=== PATIENT | male | born 1985 | race Caucasian/White ===

== ENCOUNTER 2019-05-09 17:55 | Emergency (ER) | payer BC ==
[2019-05-09] MEDS ORDERED: BISACODYL E.C. 5 MG TAB PO ONE (19:58)
[2019-05-09] MEDS ORDERED: POLYETHYL GLY 3350 17 GM/DOSE ONE (19:59)
[2019-05-09] MEDS ORDERED: MAGNESIUM CITRATE 300 ML BOT ONE (19:59)
[2019-05-09 20:04] LABS: Absolute Lymphocytes (CBC) 1.8 K/uL (0.7-4.9); Basophils % 0.6 % (0-1.3); Hematocrit 44.6 % (39.6-49.0); Lymphocytes % 34.4 % (15.3-44.8); MPV 8.7 fL (7.6-11.3); RBC Red Blood Cell Count 4.87 M/uL (4.33-5.43)
[2019-05-09 20:22] LABS: Bilirubin Direct 0.1 mg/dL (0-0.2); Bilirubin Total 0.2 mg/dL (0.2-1.0); Potassium 3.8 mmol/L (3.5-5.1); Protein, Total 8.1 g/dL (6.4-8.2)
--- NOTE | 2019-05-09 20:39 | RAD REPORT ---
EXAM DESCRIPTION: CTAbdomen Pelvis W Contrast - 05/09/2019 8:33 pm CLINICAL HISTORY: Abdominal pain. constipated;Abd pain COMPARISON: No comparisons TECHNIQUE: Biphasic CT imaging of the abdomen and pelvis was performed with 100 ml non-ionic IV cont rast. All CT scans are performed using dose optimization technique as appropriate and may include automated exposure control or mA/KV adjustment according to patient size. FINDINGS: The lung bases are clear. The liver, spleen, pancreas, adrenal glands and kidneys are within normal limits. No bowel obstruction, free air, free fluid or abscess. Moderate fecal retention in the colon. The britney endix is normal. No evidence of significant lymphadenopathy. No suspicious bony findings. IMPRESSION: Moderate fecal retention in the colon.
--- NOTE | 2019-05-09 20:55 | EDPHYS ---
Physician Documentation [facility] Name: Lux Reese III Age: 34 yrs Sex: Male : 1985 Arrival Date: 05/09/2019 Time: 17:57 Bed 27 Private MD: ED Physician Gordo Peterson HPI: 05/09 20:01 This 34 yrs old Male presents to ER via Ambulatory with complaints of kdr Constipation, Abdominal Pain. 20:01 The patient presents with abdominal pain that is diffuse. Onset: The symptoms/episode kdr began/occurred gradually, 4 day(s) ago. The symptoms do not radiate. Associated signs and symptoms: Pertinent positives: nausea, Pertinent negatives: blood in stools, chest pain, dysuria, fever, hematuria, palpitations, shortness of breath, testicular pain, vomiting, vomiting blood, The patient had diarrhea for a few days and then he changed his diet after being evaluated at [place]. For the last 4-5 days, he has not had any BM. He has occasional sharp pain as he has to go but then nothing comes out aside from gas. The symptoms are described as achy, crampy, intermittent, sharp, vague, waxing/waning. Modifying factors: The symptoms are alleviated by nothing, the symptoms are aggravated by breathing deeply, movement, touching the area. Severity of pain: At its worst the pain was moderate severe in the emergency department the pain has improved moderately. The patient has not experienced similar symptoms in the past. Historical: - Allergies: 18:41 No Known Allergies; aa5 - Home Meds: 18:41 None [Active]; aa5 - PMHx: 18:41 None; aa5 - PSHx: 18:41 Tonsillectomy; Hernia repair; aa5 - Immunization history:: Flu vaccine is not up to date. - Social history:: Smoking status: Patient uses tobacco products, smokes one-half pack cigarettes per day. - Ebola Screening: : No symptoms or risks identified at this time. ROS: 20:01 Constitutional: Negative for fever, chills, and weight loss, Eyes: Negative for injury, kdr pain, redness, and discharge, ENT: Negative for injury, pain, and discharge, Neck: Negative for injury, pain, and swelling, Cardiovascular: Negative for chest pain, palpitations, and edema, Respiratory: Negative for shortness of breath, cough, wheezing, and pleuritic chest pain, Back: Negative for injury and pain, : Negative for injury, bleeding, discharge, and swelling, MS/Extremity: Negative for injury and deformity, Skin: Negative for injury, rash, and discoloration, Neuro: Negative for headache, weakness, numbness, tingling, and seizure activity. Psych: Negative for depression, anxiety, suicide ideation, homicidal ideation, and hallucinations, Allergy/Immunology: Negative for hives, rash, and allergies, Endocrine: Negative for neck swelling, polydipsia, polyuria, polyphagia, and marked weight changes, Hematologic/Lymphatic: Negative for swollen nodes, abnormal bleeding, and unusual bruising. 20:01 Abdomen/GI: Positive for abdominal pain, nausea, constipation, abdominal cramps, flatulence, Negative for abdominal distension, anorexia, dysphagia, hematemesis, black/tarry stool, rectal pain, rectal bleeding, bowel incontinence. Exam: 20:01 Constitutional: This is a well developed, well nourished patient who is awake, alert, kdr and in no acute distress. Head/Face: Normocephalic, atraumatic. Eyes: Pupils equal round and reactive to light, extra-ocular motions intact. Lids and lashes normal. Conjunctiva and sclera are non-icteric and not injected. Cornea within normal limits. Periorbital areas with no swelling, redness, or edema. Neck: Trachea midline, no thyromegaly or masses palpated, and no cervical lymphadenopathy. Supple, full range of motion without nuchal rigidity, or vertebral point tenderness. No Meningismus. Chest/axilla: Normal chest wall appearance and motion. Nontender with no deformity. No lesions are appreciated. Cardiovascular: Regular rate and rhythm with a normal S1 and S2. No gallops, murmurs, or rubs. Normal PMI, no JVD. No pulse deficits. Respiratory: Lungs have equal breath sounds bilaterally, clear to auscultation and percussion. No rales, rhonchi or wheezes noted. No increased work of breathing, no retractions or nasal flaring. Back: No spinal tenderness. No costovertebral tenderness. Full range of motion. Skin: Warm, dry with normal turgor. Normal color with no rashes, no lesions, and no evidence of cellulitis. MS/ Extremity: Pulses equal, no cyanosis. Neurovascular intact. Full, normal range of motion. Neuro: Awake and alert, GCS 15, oriented to person, place, time, and situation. Cranial nerves II-XII grossly intact. Motor strength 5/5 in all extremities. Sensory grossly intact. Cerebellar exam normal. Normal gait. Psych: Awake, alert, with orientation to person, place and time. Behavior, mood, and affect are within normal limits. Vital Signs: 18:41 BP 120 / 81; Pulse 97; Resp 16 S; Temp 97.2(TE); Pulse Ox 99% on R/A; Weight 72.57 kg aa5 (R); Height 6 ft. 0 in. (182.88 cm) (R); Pain 3/10; 19:24 BP 120 / 87; Pulse 67; Resp 16; Pulse Ox 99% on R/A; Pain 4/10; jp3 20:16 BP 113 / 85; Pulse 85; Resp 17; Pulse Ox 99% on R/A; tr5 18:41 Body Mass Index 21.70 (72.57 kg, 182.88 cm) aa5 MDM: 20:54 Patient medically screened. kdr 21:22 Data reviewed: vital signs, nurses notes, lab test result(s), radiologic studies. kdr Counseling: I had a detailed discussion with the patient and/or guardian regarding: the historical points, exam findings, and any diagnostic results supporting the discharge/admit diagnosis, lab results, radiology results, the need for outpatient follow up. 05/09 19:31 Order name: Basic Metabolic Panel; Complete Time: 20:51 kdr 05/09 19:31 Order name: CBC with Diff; Complete Time: 20:51 kdr 05/09 19:31 Order name: Creatinine for Radiology; Complete Time: 20:51 kdr 05/09 19:31 Order name: Hepatic Function; Complete Time: 20:51 kdr 05/09 19:31 Order name: Lipase; Complete Time: 20:51 kdr 05/09 19:31 Order name: CT Abd/Pelvis - IV Contrast Only; Complete Time: 20:51 kdr 05/09 19:31 Order name: IV Saline Lock; Complete Time: 19:59 kdr 05/09 19:31 Order name: Labs collected and sent; Complete Time: 19:59 kdr Administered Medications: 20:04 Drug: Miralax 17 grams Route: PO; tr5 20:04 Drug: Magnesium Citrate Liquid 300 ml Route: PO; tr5 20:04 Drug: Dulcolax Delayed Release Tablet 5 mg Route: PO; tr5 Disposition: 05/09/19 20:54 Discharged to Home. Impression: Constipation, Abdominal and pelvic pain. - Condition is Stable. - Discharge Instructions: Constipation, Adult, [id number], Abdominal Pain, Adult, [id number]. - Prescriptions for Dulcolax (bisacodyl) 5 mg Oral tablet,delayed release (DR/EC) - take 1 tablet by ORAL route once daily As needed; 10 tablet. magnesium citrate - take 1 bottle by ORAL route 2-3 times daily As needed; 3 bottle. Miralax 17 gram/dose Oral - take 1 packet by ORAL route once daily dilute powder in 8 ounces of water or juice; 1 box. - Medication Reconciliation Form, Thank You Letter form. - Follow up: Private Physician; When: 2 - 3 days; Reason: If symptoms return, Further diagnostic work-up, Recheck today's complaints, Continuance of care, Re-evaluation by your physician. - Problem is new. - Symptoms have improved. Signatures: Dispatcher [employer] EDMS Gordo Peterson MD MD kdr Surekha Caal RN RN aa5 Jason Cheek RN RN tr5 Corrections: (The following items were deleted from the chart) 21:21 20:54 05/09/2019 20:54 Discharged to Home. Impression: Constipation; Abdominal and tr5 pelvic pain. Condition is Stable. Forms are Medication Reconciliation Form, Thank You Letter, Antibiotic Education, Prescription Opioid Use. Follow up: Private Physician; When: 2 - 3 days; Reason: If symptoms return, Further diagnostic work-up, Recheck today's complaints, Continuance of care, Re-evaluation by your physician. Problem is new. Symptoms have improved. kdr
--- NOTE | 2019-05-09 20:55 | ER ---
Nurse's Notes [facility] Name: Lux Reese III Age: 34 yrs Sex: Male : 1985 Arrival Date: 05/09/2019 Time: 17:57 Bed 27 Private MD: Diagnosis: Constipation;Abdominal and pelvic pain Presentation: 05/09 18:39 Presenting complaint: Patient states: "I was seen at [facility] about 2 weeks ago because aa5 I was having diarrhea and mucus looking stool and they just said it was a stomach virus but over the last 5 days I haven't had a bowel movement". Pt denies vomiting, reports nausea. Pt c/o generalized abd pain. Transition of care: patient was not received from another setting of care. Onset of symptoms was 2018. Risk Assessment: Do you want to hurt yourself or someone else? Patient reports no desire to harm self or others. Initial Sepsis Screen: Does the patient meet any 2 criteria? No. Patient's initial sepsis screen is negative. Does the patient have a suspected source of infection? No. Patient's initial sepsis screen is negative. Care prior to arrival: None. 18:39 Acuity: BRANDON 3 aa5 18:39 Method Of Arrival: Ambulatory aa5 Historical: - Allergies: 18:41 No Known Allergies; aa5 - Home Meds: 18:41 None [Active]; aa5 - PMHx: 18:41 None; aa5 - PSHx: 18:41 Tonsillectomy; Hernia repair; aa5 - Immunization history:: Flu vaccine is not up to date. - Social history:: Smoking status: Patient uses tobacco products, smokes one-half pack cigarettes per day. - Ebola Screening: : No symptoms or risks identified at this time. Screenin:30 Abuse screen: Denies threats or abuse. Nutritional screening: No deficits noted. tr5 Tuberculosis screening: No symptoms or risk factors identified. Fall Risk None identified. Assessment: 19:30 General: Appears uncomfortable, Behavior is calm, cooperative, appropriate for age. tr5 Pain: Complains of pain in abdomen. Neuro: Level of Consciousness is awake, alert, obeys commands, Oriented to person, place, time. Cardiovascular: Heart tones present Capillary refill < 3 seconds Pulses are all present. Edema is absent. Respiratory: Airway is patent Respiratory effort is even, unlabored, Respiratory pattern is regular, symmetrical. GI: Bowel sounds present X 4 quads. Abd is soft X 4 quads Reports lower abdominal pain, upper abdominal pain, constipation, nausea. : No signs and/or symptoms were reported regarding the genitourinary system. EENT: No signs and/or symptoms were reported regarding the EENT system. Derm: No signs and/or symptoms reported regarding the dermatologic system. Musculoskeletal: No signs and/or symptoms reported regarding the musculoskeletal system. Vital Signs: 18:41 BP 120 / 81; Pulse 97; Resp 16 S; Temp 97.2(TE); Pulse Ox 99% on R/A; Weight 72.57 kg aa5 (R); Height 6 ft. 0 in. (182.88 cm) (R); Pain 3/10; 19:24 BP 120 / 87; Pulse 67; Resp 16; Pulse Ox 99% on R/A; Pain 4/10; jp3 20:16 BP 113 / 85; Pulse 85; Resp 17; Pulse Ox 99% on R/A; tr5 18:41 Body Mass Index 21.70 (72.57 kg, 182.88 cm) aa5 ED Course: 17:57 Patient arrived in ED. rg4 18:39 Arm band placed on. aa5 18:40 Triage completed. aa5 19:02 Gordo Peterson MD is Attending Physician. kdr 19:22 Jason Cheek, HAZEL is Primary Nurse. tr5 19:25 Bed in low position. Call light in reach. Side rails up X 1. Verbal reassurance given. jp3 Pulse ox on. NIBP on. 19:25 Patient maintains SpO2 saturation greater than 95% on room air. jp3 19:58 Initial lab(s) drawn, by ri, sent to lab. Inserted saline lock: 20 gauge in right jp3 antecubital area, using aseptic technique. Blood collected. 20:34 CT Abd/Pelvis - IV Contrast Only In Process Unspecified. EDMS 21:19 No provider procedures requiring assistance completed. IV discontinued. tr5 Administered Medications: 20:04 Drug: Miralax 17 grams Route: PO; tr5 20:04 Drug: Magnesium Citrate Liquid 300 ml Route: PO; tr5 20:04 Drug: Dulcolax Delayed Release Tablet 5 mg Route: PO; tr5 Outcome: 20:54 Discharge ordered by . kdr 21:19 Discharged to home ambulatory. tr5 21:19 Condition: stable 21:19 Discharge instructions given to patient, Instructed on discharge instructions, follow up and referral plans. medication usage, Demonstrated understanding of instructions, follow-up care, medications, Prescriptions given X 3. 21:21 Patient left the ED. tr5 Signatures: Dispatcher [employer] EDMS Gordo Peterson MD MD kdr Calderon, Audri, RN RN ruchi5 Estrella Clay Jacob jp3 Jason Cheek, RN RN tr5
[2019-05-10 01:41] VITALS: TEMP 97.2; O2SAT 99
[2019-05-10 01:43] VITALS: BP 113/85
== END 2019-05-09 21:21 | disposition home or self-care (01) ==
LOC: ER 17:55
DX: K59.00 Constipation, unspecified (principal); F17.210 Nicotine dependence, cigarettes, uncomplicated
CPT/HCPCS: 85025; 80048; 36415; 80076; 83690; 74177; 99284; Q9967

== ENCOUNTER 2021-04-29 10:07 | Emergency (ER) | payer BC, OTHER ==
--- NOTE | 2021-04-29 12:29 | ER ---
Nurse's Notes [facility] Name: Lux Reese III Age: 36 yrs Sex: Male : 1985 Arrival Date: 04/29/2021 Time: 10:15 Bed 11 Private MD: Diagnosis: Nondisplaced fracture of proximal phalanx of right thumb, initial encounter for closed fracture Presentation: 04/29 10:36 Chief complaint: Patient states: smashed right thumb with hammer yesterday. Coronavirus aa5 screen: At this time, the client does not indicate any symptoms associated with coronavirus-19. Ebola Screen: No symptoms or risks identified at this time. Initial Sepsis Screen: Does the patient meet any 2 criteria? No. Patient's initial sepsis screen is negative. Does the patient have a suspected source of infection? No. Patient's initial sepsis screen is negative. Risk Assessment: Do you want to hurt yourself or someone else? Patient reports no desire to harm self or others. Onset of symptoms was April 2021. 10:36 Acuity: BRANDON 4 aa5 10:36 Method Of Arrival: Ambulatory aa5 Triage Assessment: 13:25 General: Appears in no apparent distress. comfortable, Behavior is calm, cooperative, ld1 appropriate for age. Pain: Denies pain. Musculoskeletal: No deficits noted. Injury Description: Injured right thumb. Historical: - Allergies: 10:37 No Known Allergies; aa5 - PMHx: 10:37 None; aa5 - PSHx: 10:37 Tonsillectomy; aa5 - Immunization history:: Client reports having NOT received the Covid vaccine. Last tetanus immunization: up to date < 5 years ago. - Social history:: Smoking status: Patient reports the use of cigarette tobacco products, smokes one-half pack cigarettes per day. Screenin:25 Abuse screen: Denies threats or abuse. Denies injuries from another. Nutritional ld1 screening: No deficits noted. Tuberculosis screening: No symptoms or risk factors identified. Fall Risk None identified. Vital Signs: 10:36 BP 136 / 96; Pulse 79; Resp 18 S; Temp 97.7(TE); Pulse Ox 98% on R/A; Weight 77.11 kg aa5 (R); Height 6 ft. 0 in. (182.88 cm) (R); 10:36 Body Mass Index 23.06 (77.11 kg, 182.88 cm) aa5 ED Course: 10:15 Patient arrived in ED. ds1 10:36 Arm band placed on. aa5 10:37 Triage completed. aa5 10:37 Sara Rizzo FNP-C is [facility]. kb 10:37 Gordo Peterson MD is Attending Physician. kb 10:44 Marilee Kemp, RN is Primary Nurse. iw 12:35 Hand Right 3 View XRAY In Process Unspecified. EDMS 13:00 non-adherent gauze and an aluminum finger splint applied to right thumb. Wound care: 3 cleaned wound with chlorhexidine and normal saline to right thumb. 13:25 Patient has correct armband on for positive identification. Placed in gown. Bed in low ld1 position. Call light in reach. Side rails up X2. Pulse ox on. NIBP on. Door closed. Noise minimized. Warm blanket given. 13:25 No provider procedures requiring assistance completed. Patient did not have IV access ld1 during this emergency room visit. Administered Medications: No medications were administered Outcome: 12:29 Discharge ordered by MD. kb 13:25 Discharged to home ambulatory. ld1 13:25 Condition: stable 13:25 Discharge instructions given to patient, Instructed on discharge instructions, follow up and referral plans. Demonstrated understanding of instructions, follow-up care. 13:29 Patient left the ED. ld1 Signatures: Dispatcher [employer] EDDE Sara Rizzo FNP-C ENVIRONMENTAL HEALTH NURSE-Paula Leyva ds1 Marilee Kemp, HAZEL RN Surekha Caal RN RN aa5 Layne De Jesus 3 Cindy Ford RN RN ld1 Corrections: (The following items were deleted from the chart) 10:46 10:37 Immunization history: Client reports having NOT received the Covid vaccine. Last aa5 tetanus immunization: up to date aa5
--- NOTE | 2021-04-29 12:30 | EDPHYS ---
Physician Documentation [facility] Name: Lux Reese III Age: 36 yrs Sex: Male : 1985 Arrival Date: 04/29/2021 Time: 10:15 Bed 11 Private MD: ED Physician Gordo Peterson HPI: 04/29 10:42 This 36 yrs old Male presents to ER via Ambulatory with complaints of Thumb Injury. kb 10:42 The patient or guardian reports injury, pain, swelling, tenderness. The complaints kb affect the right thumb. Context: The problem was sustained at home, resulted from accidentally hit with hammer. Onset: The symptoms/episode began/occurred yesterday. Modifying factors: The symptoms are alleviated by nothing, the symptoms are aggravated by nothing. Associated signs and symptoms: The patient has no apparent associated signs or symptoms. Severity of symptoms: At their worst the symptoms were mild, moderate, in the emergency department the symptoms are unchanged. The patient has not experienced similar symptoms in the past. The patient has not recently seen a physician. Historical: - Allergies: 10:37 No Known Allergies; aa5 - PMHx: 10:37 None; aa5 - PSHx: 10:37 Tonsillectomy; aa5 - Immunization history:: Client reports having NOT received the Covid vaccine. Last tetanus immunization: up to date < 5 years ago. - Social history:: Smoking status: Patient reports the use of cigarette tobacco products, smokes one-half pack cigarettes per day. ROS: 10:40 Constitutional: Negative for fever, chills, and weight loss. kb 10:40 MS/extremity: Positive for injury or acute deformity, abrasion, decreased range of motion, pain, swelling, tenderness, of the right thumb. 10:40 All other systems are negative. Exam: 10:40 Constitutional: This is a well developed, well nourished patient who is awake, alert, kb and in no acute distress. Head/Face: Normocephalic, atraumatic. ENT: Moist Mucous membranes Respiratory: Respirations even and unlabored. No increased work of breathing, no retractions or nasal flaring. Neuro: Awake and alert, GCS 15, oriented to person, place, time, and situation. Moves all extremities. Normal gait. Psych: Awake, alert, with orientation to person, place and time. Behavior, mood, and affect are within normal limits. 10:40 Musculoskeletal/extremity: Extremities: grossly normal except: noted in the right thumb: decreased ROM, pain, swelling, tenderness, ROM: limited active range of motion, in the right thumb, Circulation is intact in all extremities. Sensation intact. 10:40 Skin: injury, abrasion(s), small abrasion noted, of the right thumb. Vital Signs: 10:36 BP 136 / 96; Pulse 79; Resp 18 S; Temp 97.7(TE); Pulse Ox 98% on R/A; Weight 77.11 kg aa5 (R); Height 6 ft. 0 in. (182.88 cm) (R); 10:36 Body Mass Index 23.06 (77.11 kg, 182.88 cm) aa5 MDM: 10:39 Patient medically screened. kb 10:41 Data reviewed: vital signs, nurses notes. Data interpreted: Pulse oximetry: on room air kb is 98 %. Interpretation: normal. 12:28 Counseling: I had a detailed discussion with the patient and/or guardian regarding: the kb historical points, exam findings, and any diagnostic results supporting the discharge/admit diagnosis, radiology results, the need for outpatient follow up, a hand specialist, to return to the emergency department if symptoms worsen or persist or if there are any questions or concerns that arise at home. 04/29 10:38 Order name: Hand Right 3 View XRAY; Complete Time: 12:49 kb 04/29 12:27 Order name: Wound Care; Complete Time: 13:07 kb 04/29 12:27 Order name: Splint - Finger; Complete Time: 13:07 kb Administered Medications: No medications were administered Disposition: 13:40 Co-signature as Attending Physician, Gordo Peterson MD I agree with the assessment and kdr plan of care. Disposition Summary: 04/29/21 12:29 Discharge Ordered Location: Home Condition: Stable kb Diagnosis - Nondisplaced fracture of proximal phalanx of right thumb, initial encounter for kb closed fracture Followup: kb - With: Emergency Department - When: As needed - Reason: Worsening of condition Followup: kb - With: Private Physician - When: 2 - 3 days - Reason: Recheck today's complaints, Continuance of care, Re-evaluation by your physician Discharge Instructions: - Discharge Summary Sheet kb - Thumb Fracture kb Forms: - Medication Reconciliation Form kb - Thank You Letter kb - Antibiotic Education kb - Prescription Opioid Use kb Prescriptions: - Cephalexin 500 mg Oral Capsule - take 1 capsule by ORAL route every 8 hours for 10 days; 30 capsule; Refills: 0, kb Product Selection Permitted Signatures: Dispatcher [employer] EDSara Godinez, KARIS-C Gordo Pozo MD MD kdr Calderon, Audri RN RN aa5 Corrections: (The following items were deleted from the chart) 10:46 10:37 Immunization history: Client reports having NOT received the Covid vaccine. Last aa5 tetanus immunization: up to date aa5
--- NOTE | 2021-04-29 12:48 | RAD REPORT ---
EXAM DESCRIPTION: RAD - Hand Right 3 View - 04/29/2021 12:35 pm CLINICAL HISTORY: Right hand pain FINDINGS: A mildly displaced fracture involves most of the first proximal phalanx. No dislocation seen
[2021-04-29 13:33] VITALS: BP 136/96; TEMP 97.7; O2SAT 98
== END 2021-04-29 13:29 | disposition home or self-care (01) ==
LOC: ER 10:07
PROC: 2W3GX1Z Immobilization of Right Thumb using Splint (ICD-10-PCS; principal; 2021-04-29)
DX: S62.514A Nondisplaced fracture of proximal phalanx of right thumb, initial encounter for closed fracture (principal); W22.8XXA Striking against or struck by other objects, initial encounter; F17.210 Nicotine dependence, cigarettes, uncomplicated
CPT/HCPCS: 99284